=== PATIENT | female | born 1995 | race African-American/Black ===

== ENCOUNTER 2016-07-09 22:25 | Emergency (ER) | payer MEDICAID ==
[~2016-07-09] VITALS: Ht 160 cm; Wt 74.0 kg
[2016-07-09 22:27] VITALS: BP 125/71; PULSE 98; RESP 14; TEMP 98.1; O2SAT 98
[2016-07-10 00:10] VITALS: BP 123/63; PULSE 89; RESP 18; O2SAT 100
[2016-07-10] MEDS ORDERED: DOXY10TA PO (00:16)
[2016-07-10] MEDS ORDERED: CALNTAB PO (00:16)
[2016-07-10] MEDS ORDERED: SODIUM CHLOR 0.9% 1000 ML INJ 1,000 ML IV ONE (00:45)
[2016-07-10] MEDS ORDERED: ONDANSETRON HCL 4 MG/2 ML VIAL IVP ONE (00:45)
[2016-07-10 01:15] VITALS: BP 120/60; PULSE 87; RESP 18; O2SAT 100
[2016-07-10 01:35] LABS: BACTERIA, URINE RARE /hpf; BLOOD, URINE NEG (NEG); COMMENT (UR) CULT NOT INDICATED; CULTURE IF INDICATED CULT NOT INDICATED; GLUCOSE,URINE NEG (NEG); HYALINE CAST, URINE 2 /lpf (RARE); KETONE, URINE 80 mg/dL (NEG); MUCUS URINE MOD /lpf (OCC); NITRITE,URINE NEG (NEG); PH, URINE 6.5 (5.0-8.5); SQUAMOUS EPITHELIAL CELL URINE 35 /hpf (0-5); URINE COLOR YELLOW (YELLW/STRAW)
[2016-07-10 01:47] LABS: AUTOMATED NEUTROPHIL # 5.9 TH/MM3 (1.8-7.7); BASOPHIL % 0.2 % (0.0-2.0); EOSINOPHIL # 0.3 TH/MM3 (0-0.4); EOSINOPHIL % 3.6 % (0.0-4.0); HEMATOCRIT 33.8 % (35.0-46.0); HEMO FLAGS DIFF FINAL; LYMPH % 15.3 % (9.0-44.0); LYMPHOCYTE # 1.2 TH/MM3 (1.0-4.8); MEAN CELL VOLUME 74.7 FL (80.0-100.0); MEAN CORPUSCULAR HEMOGLOBIN 26.5 PG (27.0-34.0); MEAN CORPUSCULAR HGB CONC 35.5 % (32.0-36.0); MONO % 7.1 % (0.0-8.0); NEUT % 73.8 % (16.0-70.0); PLATELET COUNT 211 TH/MM3 (150-450); RED BLOOD COUNT 4.52 MIL/MM3 (4.00-5.30); RED CELL DISTRIBUTION WIDTH 15.1 % (11.6-17.2)
[2016-07-10 02:03] LABS: ANION GAP 10 MEQ/L (5-15); AST (GOT) 13 U/L (15-37); BICARBONATE 24.8 MEQ/L (21.0-32.0); BLOOD UREA NITROGEN 5 MG/DL (7-18); CHLORIDE 101 MEQ/L (98-107); GLOMERULAR FILTRATION RATE 130 ML/MIN (>89); POTASSIUM 3.7 MEQ/L (3.5-5.1); SODIUM (NA) 136 MEQ/L (136-145)
[2016-07-10 02:20] LABS: ALKALINE PHOSPHATASE 54 U/L (45-117); ALT (GPT) 16 U/L (10-53); BETA HCG QUANT 67585 MIU/ML (0-5); TOTAL BILIRUBIN ADULT 0.6 MG/DL (0.2-1.0)
[2016-07-10 02:22] VITALS: BP 121/58; PULSE 88; RESP 18; O2SAT 99
[2016-07-10] MEDS ORDERED: CEPH-459 PO (03:14)
[2016-07-10] MEDS ORDERED: REGL5TAB PO (03:16)
--- NOTE | 2016-07-10 03:16 | PD ---
HPI Chief Complaint: Related Problem Time Seen by Provider: 00:45 Travel History International Travel<30 days: No Contact w/Intl Traveler<30days: No Traveled to known affect area: No History of Present Illness HPI Is 21 years old. She is a 09-13 weeks . She has an appointment with obstetrics through for the hospital July 22. No ultrasound has been performed as of yet. She arrives because she has generalized abdominal pain associated with nausea and vomiting 10 times throughout the course of today. A fever subjectively is reported. She's had 2 episodes of diarrhea. She offers no urinary complaint. She denies vaginal bleeding and discharge. Onset gradual. She reports a history of asthma. She has no past surgical history. She takes no medication. She has no known allergy to medication. Emesis is nonbloody and diarrhea nonbloody. PFSH Past Medical History Asthma: Yes Diminished Hearing: No Respiratory: Yes (ASTHMA) Tetanus Vaccination: < 5 Years Influenza Vaccination: No ?: LMP: 04/08/2016 : 1 Para: 0 Miscarriage: 0 : 0 Past Surgical History Surgical History: No Previous Surgery Social History Alcohol Use: No Tobacco Use: No Substance Use: No Allergies-Medications (Allergen,Severity, Reaction): Coded Allergies: No Known Allergies (Unverified , 07/09/16) Reported Meds & Prescriptions Reported Meds & Active Scripts Active Reglan (Metoclopramide HCl) 5 Mg Tab 5 Mg PO TIDAC PRN Keflex (Cephalexin) 250 Mg Cap 250 Mg PO Q6H 5 Days Reported Calna ( Vitamin) 1 Tab Tab 1 Tab PO DAILY Diclegis (Doxylamine-Pyridoxine) 10-10 Mg Tab 1 Tab PO BID Review of Systems Except as stated in HPI: all other systems reviewed are Neg General / Constitutional: Positive: Fever Gastrointestinal: Positive: Nausea, Vomiting, Diarrhea, Abdominal Pain Physical Exam Narrative GENERAL: Patient is 21 years old no acute distress well-nourished well-developed SKIN: Warm and dry. HEAD: Atraumatic. Normocephalic. EYES: Pupils equal and round. No scleral icterus. No injection or drainage. ENT: No nasal bleeding or discharge. Mucous membranes pink and moist. NECK: Trachea midline. No JVD. CARDIOVASCULAR: Regular rate and rhythm. No murmur appreciated. RESPIRATORY: No accessory muscle use. Clear to auscultation. Breath sounds equal bilaterally. GASTROINTESTINAL: No tenderness at McBurney's point. Minimal suprapubic tenderness. Negative Estrada sign. MUSCULOSKELETAL: No obvious deformities. No clubbing. No cyanosis. No edema. NEUROLOGICAL: Awake and alert. No obvious cranial nerve deficits. Motor grossly within normal limits. Normal speech. PSYCHIATRIC: Appropriate mood and affect; insight and judgment normal. Data Data Last Documented VS Vital Signs Date Time Temp Pulse Resp B/P Pulse Ox O2 Delivery O2 Flow Rate FiO2 07/10/16 02:22 88 18 121/58 99 Room Air 07/09/16 22:27 98.1 Vital signs reviewed Orders Beta Hcg (Quant/Titer) (07/10/16 00:45) Complete Blood Count With Diff (07/10/16 00:45) Comprehensive Metabolic Panel (07/10/16 00:45) Urinalysis - C+S If Indicated (07/10/16 00:45) Ua Includes Microscopic (07/10/16 00:45) Iv Access Insert/Monitor (07/10/16 00:45) Ecg Monitoring (07/10/16 00:45) Sodium Chlor 0.9% 1000 Ml Inj (Ns 1000 M (07/10/16 00:45) Ondansetron Inj (Zofran Inj) (07/10/16 00:45) Ed Poc Ultrasound (07/10/16 00:45) Complete Rh (07/10/16 02:00) Labs Laboratory Tests Test 07/10/16 07/10/16 01:05 02:10 White Blood Count 8.0 TH/MM3 Red Blood Count 4.52 MIL/MM3 Hemoglobin 12.0 GM/DL Hematocrit 33.8 % Mean Corpuscular Volume 74.7 FL Mean Corpuscular Hemoglobin 26.5 PG Mean Corpuscular Hemoglobin 35.5 % Concent Red Cell Distribution Width 15.1 % Platelet Count 211 TH/MM3 Mean Platelet Volume 8.5 FL Neutrophils (%) (Auto) 73.8 % Lymphocytes (%) (Auto) 15.3 % Monocytes (%) (Auto) 7.1 % Eosinophils (%) (Auto) 3.6 % Basophils (%) (Auto) 0.2 % Neutrophils # (Auto) 5.9 TH/MM3 Lymphocytes # (Auto) 1.2 TH/MM3 Monocytes # (Auto) 0.6 TH/MM3 Eosinophils # (Auto) 0.3 TH/MM3 Basophils # (Auto) 0.0 TH/MM3 CBC Comment DIFF FINAL Differential Comment Urine Color YELLOW Urine Turbidity HAZY Urine pH 6.5 Urine Specific [place] 1.025 Urine Protein 30 mg/dL Urine Glucose (UA) NEG mg/dL Urine Ketones 80 mg/dL Urine Occult Blood NEG Urine Nitrite NEG Urine Bilirubin NEG Urine Urobilinogen LESS THAN 2.0 MG/DL Urine Leukocyte Esterase LARGE Urine RBC 6 /hpf Urine WBC 8 /hpf Urine Squamous Epithelial 35 /hpf Cells Urine Amorphous Sediment RARE Urine Bacteria RARE /hpf Urine Hyaline Casts 2 /lpf Urine Mucus MOD /lpf Microscopic Urinalysis Comment CULT NOT INDICATED Sodium Level 136 MEQ/L Potassium Level 3.7 MEQ/L Chloride Level 101 MEQ/L Carbon Dioxide Level 24.8 MEQ/L Anion Gap 10 MEQ/L Blood Urea Nitrogen 5 MG/DL Creatinine 0.69 MG/DL Estimat Glomerular Filtration 130 ML/MIN Rate Random Glucose 80 MG/DL Calcium Level 9.5 MG/DL Total Bilirubin 0.6 MG/DL Aspartate Amino Transf 13 U/L (AST/SGOT) Alanine Aminotransferase 16 U/L (ALT/SGPT) Alkaline Phosphatase 54 U/L Total Protein 7.5 GM/DL Albumin 3.2 GM/DL Human Chorionic Gonadotropin, [address] MIU/ML Quant Blood Type O POSITIVE Rho(D) Type POSITIVE MDM Medical Decision Making Medical Screen Exam Complete: Yes Emergency Medical Condition: Yes Medical Record Reviewed: Yes Differential Diagnosis IUP, UTI, ectopic , ov torsion, appendicitis, TOA, cervicitis, BV, Trichomoniasis, ov cyst, hernia, mittelschmerz, pain from menstruation Narrative Course CBC & BMP Diagram 07/10/16 01:05 LFTs are normal The beta hCG is 60,585 Urinalysis reveals asymptomatic bacteriuria versus contaminated specimen along with mild ketonuria Workup tonight is reassuring. The transabdominal ultrasound reveals an intrauterine with heart rate of 150 approximately. Patient reassured. Follow-up with obstetrics as described. Her blood type is O+. Scripts as below. Procedures Procedure Narrative Transabdominal ultrasound of the uterus reveals an intrauterine with heart rate of about 150 bpm. No assisted fertilization technique employed. Mother reassured. She understands the purpose of the ultrasound is only to diagnose whether or not the is intrauterine versus ectopic. Diagnosis Primary Impression: IUP (intrauterine ), incidental Additional Impression: Bacteriuria Referrals: [facility] On July 22 as scheduled; try to get appointment sooner Additional Instructions: You have a choice when it comes to health care, and we are glad that you chose [facility]. Hopefully, we have met your expectations on today's visit. You are welcome to return to [facility] at any time, as we are committed to meeting the health care needs of our community. Med/Other Pt SpecificInfo: Prescription(s) given Scripts Metoclopramide (Reglan)5 Mg Tab5 Mg PO TIDAC PRN (NAUSEA OR VOMITING) #10 TAB Ref 0 Prov:Lokesh Hammer MD 07/10/16 Cephalexin (Keflex)250 Mg [id number] Mg PO Q6H 5 Days Ref 0 Prov:Lokesh Hammer MD 07/10/16 Disposition: 01 DISCHARGE HOME Condition: Stable Lokesh Hammer MD Jul 10, 2016 03:16
[2016-07-10 03:29] VITALS: BP 108/65
== END 2016-07-10 03:40 | disposition home or self-care (01) ==
LOC: NEPE 22:25
DX: O26.891 Other specified pregnancy related conditions, first trimester (principal); R82.71 Bacteriuria; R10.84 Generalized abdominal pain; R19.7 Diarrhea, unspecified; O21.9 Vomiting of pregnancy, unspecified; Z87.09 Personal history of other diseases of the respiratory system; Z3A.00 Weeks of gestation of pregnancy not specified
CPT/HCPCS: 80053; 81001; 84702; 85025; 86901; 96361; 96374; 99284; J2405; J7030

== ENCOUNTER 2016-08-04 17:29 | Emergency (ER) | payer MEDICAID ==
[~2016-08-04] VITALS: Ht 160 cm; Wt 73.5 kg
[~2016-08-04 17:29] MED LIST: CALNTAB PO; CEPH-459 PO; DOXY10TA PO; REGL5TAB PO
[2016-08-04 17:32] VITALS: BP 117/65; PULSE 100; RESP 16; TEMP 98; O2SAT 100
--- NOTE | 2016-08-04 18:05 | PD ---
Physical Exam Time Seen by Provider: 18:01 Narrative 21 year old female presents to the ED for evaluation of nausea and vomiting for two days with associated diarrhea, subjective fever, and chills. Reports abdominal cramping across her lower abdominal. Pt is 16 weeks gestation and followed by Dr. Perez. Denies vaginal bleeding or discharge. No urinary symptoms. Pt has not yet felt movement. Pt is otherwise without significant medical history. Data Data Last Documented VS Vital Signs Date Time Temp Pulse Resp B/P Pulse Ox O2 Delivery O2 Flow Rate FiO2 08/04/16 17:32 98.0 100 16 117/65 100 Room Air [facility] Medical Record Reviewed: Yes Supervised Visit with ROSHAN: No Narrative Course 21 year old female 16 weeks gestation presents to ED for evaluation of N/V/D with subjective fever and chills x 2 days. Slightly elevated HR, otherwise VSS. Appears without distress. Condition: Stable Sarah Dumont Aug 04, 2016 18:05
[2016-08-04] MEDS ORDERED: METOCLOPRAMIDE HCL 10 MG TAB PO ONE (19:15)
[2016-08-04] MEDS ORDERED: SODIUM CHLOR 0.9% 1000 ML INJ 1,000 ML IV ONE (19:50)
[2016-08-04] MEDS ORDERED: ONDANSETRON HCL 4 MG/2 ML VIAL IV PUSH ONE (20:00)
[2016-08-04] MEDS ORDERED: ZOFR4TAB3 SL (20:11)
--- NOTE | 2016-08-04 20:12 | PD ---
HPI Chief Complaint: GI Complaint Time Seen by Provider: 18:51 Travel History International Travel<30 days: No Contact w/Intl Traveler<30days: No Traveled to known affect area: No History of Present Illness HPI 21-year-old female 1 para 0 who states she is 16 weeks arrives due to vomiting for 2-1/2 days as well as diarrhea. Any oral intake causes vomiting. She was seen at [facility] yesterday for the same complaint. She was Diclegis which she states worked very well. She was unable to fill the prescription due to insurance complications. Additional complaints include lightheadedness and dizziness. She complains of halitosis as well. She has generalized crampy sensation in the abdomen. She's had no vaginal bleeding or vaginal discharge. No urinary complaint offered. She follows up with Dr. Lawrence of obstetrics. At the end of the interview and examination the patient states, "Can I get an ultrasound?" PFSH Past Medical History Asthma: Yes Diminished Hearing: No Respiratory: Yes (ASTHMA) ?: LMP: 04/08/2017 : 1 Para: 0 Miscarriage: 0 : 0 Social History Alcohol Use: No Tobacco Use: No Substance Use: No Allergies-Medications (Allergen,Severity, Reaction): Coded Allergies: No Known Allergies (Unverified , 08/04/16) Reported Meds & Prescriptions Reported Meds & Active Scripts Active Pyridoxine (Pyridoxine HCl) 25 Mg Tab 25 Mg PO Q8HR PRN Unisom (Doxylamine Succinate (Sleep)) 25 Mg Tab 12.5 Mg PO Q8HR PRN 10 Days Zofran Odt (Ondansetron Odt) 4 Mg Tab 4 Mg SL Q8HR PRN Reported Calna ( Vitamin) 1 Tab Tab 1 Tab PO DAILY Review of Systems Except as stated in HPI: all other systems reviewed are Neg General / Constitutional: No: Fever, Chills Physical Exam Narrative GENERAL: 21-year-old female pleasant well-nourished well-developed SKIN: Focused skin assessment warm/dry. HEAD: Atraumatic. Normocephalic. EYES: Pupils equal and round. No scleral icterus. No injection or drainage. ENT: No nasal bleeding or discharge. Mucous membranes pink and moist. NECK: Trachea midline. No JVD. CARDIOVASCULAR: Regular rate and rhythm. No murmur appreciated. RESPIRATORY: No accessory muscle use. Clear to auscultation. Breath sounds equal bilaterally. GASTROINTESTINAL: Soft. No focal tenderness. MUSCULOSKELETAL: No obvious deformities. No clubbing. No cyanosis. No edema. NEUROLOGICAL: Awake and alert. No obvious cranial nerve deficits. Motor grossly within normal limits. Normal speech. PSYCHIATRIC: Appropriate mood and affect; insight and judgment normal. Data Data Last Documented VS Vital Signs Date Time Temp Pulse Resp B/P Pulse Ox O2 Delivery O2 Flow Rate FiO2 08/04/16 17:32 98.0 100 16 117/65 100 Room Air vital signs reviewed Orders Metoclopramide (Reglan) (08/04/16 19:15) Ed Poc Ultrasound (08/04/16 ) Complete Blood Count With Diff (08/04/16 19:50) Basic Metabolic Panel (Bmp) (08/04/16 19:50) Iv Access Insert/Monitor (08/04/16 19:50) Ecg Monitoring (08/04/16 19:50) Sodium Chlor 0.9% 1000 Ml Inj (Ns 1000 M (08/04/16 19:50) Ondansetron Inj (Zofran Inj) (08/04/16 20:00) Labs Laboratory Tests Test 08/04/16 20:00 White Blood Count 10.2 TH/MM3 Red Blood Count 4.55 MIL/MM3 Hemoglobin 11.8 GM/DL Hematocrit 34.8 % Mean Corpuscular Volume 76.5 FL Mean Corpuscular Hemoglobin 26.0 PG Mean Corpuscular Hemoglobin 34.0 % Concent Red Cell Distribution Width 15.3 % Platelet Count 205 TH/MM3 Mean Platelet Volume 8.8 FL Neutrophils (%) (Auto) 80.1 % Lymphocytes (%) (Auto) 12.6 % Monocytes (%) (Auto) 5.8 % Eosinophils (%) (Auto) 1.2 % Basophils (%) (Auto) 0.3 % Neutrophils # (Auto) 8.2 TH/MM3 Lymphocytes # (Auto) 1.3 TH/MM3 Monocytes # (Auto) 0.6 TH/MM3 Eosinophils # (Auto) 0.1 TH/MM3 Basophils # (Auto) 0.0 TH/MM3 CBC Comment DIFF FINAL Differential Comment Sodium Level 136 MEQ/L Potassium Level 3.5 MEQ/L Chloride Level 102 MEQ/L Carbon Dioxide Level 25.8 MEQ/L Anion Gap 8 MEQ/L Blood Urea Nitrogen 5 MG/DL Creatinine 0.77 MG/DL Estimat Glomerular Filtration 115 ML/MIN Rate Random Glucose 76 MG/DL Calcium Level 9.4 MG/DL [facility] Medical Decision Making Medical Screen Exam Complete: Yes Emergency Medical Condition: Yes Differential Diagnosis IUP, UTI, ectopic , ov torsion, appendicitis, TOA, cervicitis, BV, Trichomoniasis, ov cyst, hernia, mittelschmerz, pain from menstruation Narrative Course CBC & BMP Diagram 08/04/16 20:00 Transabdominal sounds reveals IUP with heart rate about 150. The patient is resting comfortably and feels better, is alert and in no distress. The patients results and examination findings were discussed. The repeat examination is unremarkable and benign. The history, exam, diagnostic testing, and current condition do not suggest any significant pathology to warrant further testing, continued ED treatment, admission, or surgical evaluation at this point. The vital signs have been stable. The patient does not have uncontrollable pain, intractable vomiting, or other significant symptoms. The patient's condition is stable and appropriate for discharge. The patient will pursue further outpatient evaluation with a primary care physician or other designated or consulting physician as indicated in the discharge instructions. The patient expressed understanding and was agreeable with this plan. Procedures Procedure Narrative Transabdominal ultrasound reveals an IUP w a heart rate of about 150. No in vitro fertilization. Diagnosis Primary Impression: Nausea vomiting and diarrhea Additional Impression: Qualified Code: Z3A.16 - 16 weeks gestation of Referrals: WESLEY LAWRENCE M.D. 1 day Additional Instructions: You have a choice when it comes to health care, and we are glad that you chose [facility]. Hopefully, we have met your expectations on today's visit. You are welcome to return to [facility] at any time, as we are committed to meeting the health care needs of our community. Med/Other Pt SpecificInfo: Prescription(s) given Scripts Pyridoxine 25 Mg Tab25 Mg PO Q8HR PRN (NAUSEA OR VOMITING) #30 TAB Ref 0 Prov:Lokesh Hammer MD 08/04/16 Doxylamine Succinate (Sleep) (Unisom)25 Mg Tab12.5 Mg PO Q8HR PRN (NAUSEA OR VOMITING) 10 Days Prov:Lokesh Hammer MD 08/04/16 Ondansetron Odt (Zofran Odt)4 Mg Tab4 Mg SL Q8HR PRN (Nausea/Vomiting) #10 TAB Ref 0 Prov:Lokesh Hammer MD 08/04/16 Condition: Stable Lokesh Hammer MD Aug 04, 2016 20:12
[2016-08-04 20:16] LABS: AUTOMATED NEUTROPHIL # 8.2 TH/MM3 (1.8-7.7); BASOPHIL % 0.3 % (0.0-2.0); EOSINOPHIL # 0.1 TH/MM3 (0-0.4); EOSINOPHIL % 1.2 % (0.0-4.0); HEMATOCRIT 34.8 % (35.0-46.0); HEMO FLAGS DIFF FINAL; LYMPH % 12.6 % (9.0-44.0); LYMPHOCYTE # 1.3 TH/MM3 (1.0-4.8); MEAN CELL VOLUME 76.5 FL (80.0-100.0); MONO % 5.8 % (0.0-8.0); NEUT % 80.1 % (16.0-70.0); PLATELET COUNT 205 TH/MM3 (150-450); RED BLOOD COUNT 4.55 MIL/MM3 (4.00-5.30); RED CELL DISTRIBUTION WIDTH 15.3 % (11.6-17.2); WHITE BLOOD COUNT 10.2 TH/MM3 (4.0-11.0)
[2016-08-04 20:31] LABS: BICARBONATE 25.8 MEQ/L (21.0-32.0); POTASSIUM 3.5 MEQ/L (3.5-5.1)
[2016-08-04] MEDS ORDERED: PYRI25TA2 PO (20:40)
[2016-08-04] MEDS ORDERED: UNIS25TA2 PO (20:40)
== END 2016-08-04 20:58 | disposition home or self-care (01) ==
LOC: NEPD 17:29
DX: R11.2 Nausea with vomiting, unspecified (principal); O26.892 Other specified pregnancy related conditions, second trimester; R19.7 Diarrhea, unspecified; Z3A.16 16 weeks gestation of pregnancy
CPT/HCPCS: 80048; 85025; 96374; 99284; J2405; J7030